=== PATIENT | female | born 1995 | race Caucasian/White ===

== ENCOUNTER → 2016-12-17 | Outpatient (CLI) | payer BC ==
[~2016-12-17] MED LIST: ACET1TAB43 PO; ACHD5005 PO; CEPH500C PO; CYCL10TA9 PO; FAMO20TA5 PO; IBUP-1773 PO; METO-270 PO; METO10TA3 PO; Metoclopramide Hcl PO; NAPR-243 PO; PREN1TAB71 PO; PRM25T PO; SCR1T1 PO; SERT50TA2 PO
--- NOTE | 2016-12-17 14:00 | Diagnostic Imaging Report ---
PROCEDURE: US abdomen complete. TECHNIQUE: Multiple real-time grayscale images were obtained over the abdomen in various projections. INDICATION: Generalized abdominal pain with vomiting and diarrhea. COMPARISON: None. DISCUSSION: Sonographic evaluation of the abdomen was performed. The liver appears normal in echotexture and size. No hepatic mass identified. The gallbladder appears normal without evidence of cholelithiasis, wall thickening, or pericholecystic fluid. No evidence of intra or extrahepatic biliary duct dilatation. The common bile duct is normal measuring 0.3 cm. The pancreas and aorta are obscured due to overlying bowel gas. The spleen appears normal in echotexture and size measuring 12.6 cm. The visualized IVC appears within normal limits. The bilateral kidneys appear normal in echotexture and size without evidence of hydronephrosis or renal mass. The right kidney measures 11 cm. The left kidney measures 11 cm. There is no ascites or abnormal bowel loops identified. No sonographic Queen sign was reported. IMPRESSION: 1. Poor visualization of the pancreas, otherwise unremarkable abdominal ultrasound. Dictated by: Dictated on workstation # [id number]
== END ==
LOC: RAD 11:57
PROVIDERS: ATTEND Nurse Practitioner Family
DX: R10.11 Right upper quadrant pain (principal); K92.1 Melena; R10.84 Generalized abdominal pain; R68.83 Chills (without fever); K81.9 Cholecystitis, unspecified
CPT/HCPCS: 76700

== ENCOUNTER 2016-12-30 07:22 | Outpatient (RCR) | payer BC ==
[~2016-12-30 07:22] MED LIST changes: -METO-270 PO; -SERT50TA2 PO
[2017-01-09] MEDS ORDERED: SERT50TA2 PO (11:12)
[2017-01-09] MEDS ORDERED: METO-270 PO (11:12)
== END 2017-03-04 | disposition home or self-care (01) ==
LOC: CARD 07:22
PROVIDERS: ATTEND Internal Medicine Cardiovascular Disease
DX: R00.2 Palpitations (principal); I49.9 Cardiac arrhythmia, unspecified; R55 Syncope and collapse
CPT/HCPCS: 93270

== ENCOUNTER 2017-01-09 05:38 | Outpatient (CLI) | payer BC ==
[~2017-01-09] VITALS: Ht 175.3 cm; Wt 65.8 kg
[2017-01-09] MEDS ORDERED: SERT50TA2 PO (11:12)
[2017-01-09] MEDS ORDERED: METO-270 PO (11:12)
== END 2017-01-09 11:14 ==
LOC: PREOP 05:38
PROVIDERS: ATTEND Surgery
DX: Z01.818 Encounter for other preprocedural examination (principal); R19.5 Other fecal abnormalities

== ENCOUNTER 2017-01-14 09:36 | Day surgery (SDC) | payer BC ==
[~2017-01-14] VITALS: Ht 175.3 cm; Wt 65.8 kg
[~2017-01-14 09:36] MED LIST changes: +METO-270 PO; +SERT50TA2 PO
[2017-01-14] MEDS ORDERED: PROPOFOL INJECTION 50 ML IV ONE (09:38)
[2017-01-14] MEDS ORDERED: MIDAZOLAM 2 MG/2 ML (VERSED) VIAL ONE ×2 (09:39→10:20)
[2017-01-14] MEDS ORDERED: NS IV 1000 ML 1,000 ML IV STA (09:42)
[2017-01-14] MEDS ORDERED: NS IV 1000 ML 1,000 ML ONE (09:49)
--- NOTE | 2017-01-14 09:53 | Progress Note-Pre Operative ---
Pre-Operative Progress Note H&P Reviewed The H&P was reviewed, patient examined and no changes noted. Date H&P Reviewed: January 14, 2017 Time H&P Reviewed: 09:52 Pre-Operative Diagnosis: black tarry stools, gerd, possible ulcer SHEN ABARCA DO January 14, 2017 9:53 am
[2017-01-14 10:17] VITALS: BP 115/85
--- NOTE | 2017-01-14 10:59 | Progress Note-Post Operative ---
Post-Operative Progess Note Surgeon (s)/Supervisor Laboratory (s) Surgeon SHEN ABARCA DO Supervisor Laboratory: na Pre-Operative Diagnosis black tarry stools, gerd, possible ulcer Post-Operative Diagnosis normal egd, slight erythematous changes in rectum Procedure & Operative Findings Date of Procedure 01/14/17 Procedure Preformed/Findings egd c biopsy and colonoscopy with cold biopsy rectum Anesthesia Type per [employer] umpire Estimated Blood Loss Estimated blood loss (mL): none Specimens/Packing Specimens Removed antrum, rectum Packing: SHEN Da Silva DO January 14, 2017 10:59
[2017-01-14] MEDS ORDERED: HURRICAINE EXT TUBE (BENZOCAINE) XX ONE (11:00)
--- NOTE | 2017-01-14 11:03 | Discharge Inst-Simple/Standard ---
Discharge Inst-Standard Patient Instructions/Follow Up Plan of Care/Instructions/FU: Follow up in clinic in 2 weeks Activity as Tolerated: Yes Discharge Diet: No Restrictions SADIE SALGADO APRN January 14, 2017 11:03
[2017-01-14 11:20] VITALS: BP 100/68
[2017-01-14 11:50] VITALS: BP 98/63
[2017-01-14 12:05] VITALS: BP 98/63
--- NOTE | 2017-01-15 05:27 | OPERATIVE REPORT ---
DATE OF SERVICE: 01/14/2017 POSTOPERATIVE DIAGNOSIS: , gastroesophageal reflux disease, possible ulcer. POSTOPERATIVE DIAGNOSIS: Normal esophagogastroduodenoscopy, slight erythematous changes in the rectum. PROCEDURE: EGD with biopsy and colonoscopy with cold biopsy of the rectum. SURGEON: Shen Snyder DO ANESTHESIA: Per PULMONOLOGIST INTENSIVIST. ESTIMATED BLOOD LOSS: None. COMPLICATIONS: None. SPECIMENS: Biopsy of the antrum and rectum. INDICATIONS: The patient is a 21-year-old female who has been having black tarry stools. She understands risks and benefits of procedure and wished to proceed with procedure. Consent was signed in the chart. PROCEDURE: The patient was taken to the endoscopy suite, placed in left lateral recumbent position. Timeout was performed. Scope was inserted in mouth, down into esophagus, stomach and into the duodenum without difficulty. There are no polyps, masses or ulcerations within the duodenum. The scope was slowly retracted back into the stomach where it was further insufflated. There were no significant mucosal changes. There are no polyps, masses or ulcerations. Scope was retroflexed noting no other pathology. Scope was returned to its normal position and biopsy of the antrum was obtained. The scope was then slowly retracted back into the distal esophagus. There are no polyps, masses or ulcerations in the esophagus. Scope was then slowly retracted back until removed, noting no other pathology. Digital rectal exam was performed and was no palpable polyps, masses or ulcerations. Scope was inserted in the rectum and noticed some isolated areas of erythematous changes within the rectum, scope was inserted all the way to the cecum without difficulty. Prep was adequate. The ileocecal valve was intubated. The terminal ileum had normal appearance. The scope was retracted back into the colon and further insufflated. There were no polyps, masses or ulcerations in the cecum, ascending, transverse, descending and sigmoid colon. The scope was also retroflexed in the rectum, noting no other pathology. Scope was returned to its normal position and cold biopsy of the erythematous changes present within the rectum was obtained. The colon was then desufflated, the colonoscope was then slowly retracted until completely removed. The patient tolerated procedure well without any complications. She was taken to the recovery room in stable condition. RECOMMENDATIONS: The patient will follow up in the office in approximately 2-3 weeks to discuss pathology results. If she has any changes prior to that, she should be reevaluated at that time. If she has any return of symptoms, she should be reevaluated at that time. Otherwise, begin normal routine screening guidelines. Job ID: [id number] DocumentID: [id number] Dictated Date: 01/14/2017 11:00:39 Buffet Manager Date: 01/15/2017 05:26:41 Dictated By: SHEN SNYDER DO
== END 2017-01-14 12:05 | disposition home or self-care (01) ==
LOC: ENDO 09:36
PROVIDERS: ATTEND Surgery
DX: R19.5 Other fecal abnormalities (principal); K21.9 Gastro-esophageal reflux disease without esophagitis
CPT/HCPCS: 84703

== ENCOUNTER 2018-03-11 12:21 | Emergency (ER) | payer BC ==
[~2018-03-11] VITALS: Ht 175.3 cm; Wt 65.8 kg
[~2018-03-11 12:21] MED LIST changes: -METO-270 PO; +METO-387 PO
[2018-03-11 12:59] LABS: BASOPHILS % (AUTO) 1 % (0-10); EOSINOPHILS # (AUTO) 0.1 10^3/uL (0.0-0.3); EOSINOPHILS % (AUTO) 1 % (0-10); HEMATOCRIT 42 % (35-52); HEMOGLOBIN 14.6 G/DL (11.5-16.0); LYMPHOCYTES # (AUTO) 1.5 X 10^3 (1.0-4.0); LYMPHOCYTES % (AUTO) 23 % (12-44); MEAN CORPUSCULAR HEMOGLOBIN 31 PG (25-34); MEAN CORPUSCULAR HGB CONC 35 G/DL (32-36); MEAN CORPUSCULAR VOLUME 88 FL (80-99); MEAN PLATELET VOLUME 9.3 FL (7.4-10.4); MONOCYTES # (AUTO) 0.6 X 10^3 (0.0-1.0); MONOCYTES % (AUTO) 9 % (0-12); NEUTROPHILS # (AUTO) 4.4 X 10^3 (1.8-7.8); NEUTROPHILS % (AUTO) 67 % (42-75); PLATELET COUNT 279 10^3/uL (130-400); RED BLOOD COUNT 4.77 10^6/uL (4.35-5.85); WHITE BLOOD COUNT 6.5 10^3/uL (4.3-11.0)
--- NOTE | 2018-03-11 13:21 | Diagnostic Imaging Report ---
INDICATION: Chest pain for three days. TIME OF EXAM: 1:05 p.m. COMPARISON: Correlation is made with prior study from 10/07/2011. FINDINGS: The heart size is normal. The pulmonary vascularity is unremarkable. The lungs are clear. No infiltrate, effusion or pneumothorax is detected. IMPRESSION: No acute cardiopulmonary process is detected. Dictated by: Dictated on workstation # [id number]
[2018-03-11 13:23] LABS: ALANINE AMINOTRANSFERASE 20 U/L (0-55); ALBUMIN 4.3 GM/DL (3.2-4.5); ALKALINE PHOSPHATASE 69 U/L (40-136); BILIRUBIN,TOTAL 0.6 MG/DL (0.1-1.0); BUN/CREATININE RATIO 13; CALCIUM 9.9 MG/DL (8.5-10.1); CARBON DIOXIDE 23 MMOL/L (21-32); CHLORIDE 106 MMOL/L (98-107); CREATININE SERUM 0.67 MG/DL (0.60-1.30); GFR ESTIMATED > 60; GLUCOSE 81 MG/DL (70-105); MAGNESIUM 2.1 MG/DL (1.8-2.4); SODIUM 138 MMOL/L (135-145); TOTAL PROTEIN 7.5 GM/DL (6.4-8.2)
[2018-03-11 13:26] LABS: FIBRIN DEGRADATION PRODUCTS 0.29 UG/ML (0.00-0.49)
[2018-03-11 13:29] LABS: MYOGLOBIN SERUM 13.2 NG/ML (10.0-92.0)
--- NOTE | 2018-03-11 13:32 | ED Chest Pain ---
General Chief Complaint: Chest Wall/Rib Pain Stated Complaint: CP Nursing Triage Note: AMB TO ROOM REPORTS SNCE FRIDAY HAS HAD CHEST PAIN SINCE FRI ON AND OFF. REPORTS MORES HEAVYNESS THAN PAIN. PAIN WORSE WITH MOVEMENT. PMH OF Nursing Sepsis Screen: No Definite Risk Source: patient Exam Limitations: no limitations History of Present Illness Date Seen by Provider: Mar 11, 2018 Time Seen by Provider: 13:30 Initial Comments to ER with reports of left-sided chest pain intermittently since Friday,this pain radiates through to her back starting today. She describes it as a heaviness. She has some shortness of breath but no nausea. She is not on control. She is a nonsmoker. She has an extensive history of cardiac related complaints and extensive workup in the outpatient setting by Dr. Newell from cardiology. Timing/Duration: intermittent Severity/Quality: moderate Location: central Radiation: no radiation Activities at Onset: none ASA po DOOR TO DOOR SALESMAN: No NTG SL DOOR TO DOOR SALESMAN: No Allergies and Home Medications Allergies Coded Allergies: No Known Drug Allergies (Unverified , 10/07/11) Home Medications Metoprolol Succinate 25 Mg Tab.er.24h, 12.5 MG PO DAILY, (Reported) take 1/2 of 25mg tab Sertraline HCl 50 Mg Tablet, 75 MG PO DAILY, (Reported) take 1 1/2 of 50mg tab Patient Home Medication List Home Medication List Reviewed: Yes Review of Systems Constitutional: see HPI; No chills, No fever EENTM: No Symptoms Reported Respiratory: See HPI, Shortness of Air Cardiovascular: See HPI, Chest Pain Gastrointestinal: No Symptoms Reported Genitourinary: No Symptoms Reported Musculoskeletal: no symptoms reported Skin: no symptoms reported Psychiatric/Neurological: No Symptoms Reported Endocrine: No Symptoms Reported Hematologic/Lymphatic: No Symptoms Reported Past Ulcrqhf-Nzcguw-Ykopjh Hx Patient Social History Alcohol Use: Occasionally Uses Recreational Drug Use: No Recent Foreign Travel: No Contact w/Someone Who Travel: No Recent Infectious Disease Expo: No Recent Hopitalizations: No Immunizations Up To Date Tetanus Booster (TDap): Unknown PED Vaccines UTD: No Date of Influenza Vaccine: Jun 16, 2016 Seasonal Allergies Seasonal Allergies: Yes Past Medical History Surgeries: Yes (WISDOM TEETH) Respiratory: No Currently Using CPAP: No Currently Using BIPAP: No Cardiac: Yes Irregular Heartbeat, Palpitations, Syncope Neurological: No Reproductive Disorders: No Female Reproductive Disorders: Denies Sexually Transmitted Disease: No HIV/AIDS: No Gastrointestinal: Yes (black tarry stools) Gastroesophageal Reflux Musculoskeletal: No Endocrine: No Loss of Vision: Denies Hearing Impairment: Denies Cancer: No Psychosocial: No Integumentary: No Blood Disorders: No Family Medical History Abdominal aortic aneurysm Arthritis 19 MOTHER (MOTHER GRANDMOTHER MATERNAL) Completed stroke 19 FATHER (GRANDFATHER) Diabetes mellitus 19 MOTHER (MOTHER) FH: breast cancer in first degree relative Headache disorder Hypercholesterolemia 19 FATHER (FATHER) 19 MOTHER (MOTHER) Hypertension 19 FATHER (FATHER) 19 MOTHER (MOTHER) Infertility Physical Exam Vital Signs Vital Signs - First Documented 03/11/18 12:25 Temp 98.9 Pulse 61 Resp 18 B/P (MAP) 103/73 (83) Capillary Refill : Less Than 3 Seconds Height, Weight, BMI Height: 5'9.00" Weight: 145lbs.0.0oz.[id number]; 21.4 BMI Method:Stated General Appearance: No Apparent Distress, WD/WN, Other (flat affect) HEENT: PERRL/EOMI, TMs Normal Neck: Full Range of Motion, Normal Inspection Respiratory: No Accessory Muscle Use, No Respiratory Distress Cardiovascular: Regular Rate, Rhythm, Normal Peripheral Pulses Gastrointestinal: Normal Bowel Sounds, Non Tender, Soft Extremity: Normal Capillary Refill, Normal Inspection Neurologic/Psychiatric: Alert, Oriented x3 Skin: Normal Color, Warm/Dry Progress/Results/Core Measures Results/Orders Lab Results Laboratory Tests Test 03/11/18 12:53 Range/Units White Blood Count 6.5 4.3-11.0 10^3/uL Red Blood Count 4.77 4.35-5.85 10^6/uL Hemoglobin 14.6 11.5-16.0 G/DL Hematocrit 42 35-52 % Mean Corpuscular Volume 88 80-99 FL Mean Corpuscular Hemoglobin 31 25-34 PG Mean Corpuscular Hemoglobin Concent 35 32-36 G/DL Red Cell Distribution Width 12.0 10.0-14.5 % Platelet Count 279 130-400 10^3/uL Mean Platelet Volume 9.3 7.4-10.4 FL Neutrophils (%) (Auto) 67 42-75 % Lymphocytes (%) (Auto) 23 12-44 % Monocytes (%) (Auto) 9 0-12 % Eosinophils (%) (Auto) 1 0-10 % Basophils (%) (Auto) 1 0-10 % Neutrophils # (Auto) 4.4 1.8-7.8 X 10^3 Lymphocytes # (Auto) 1.5 1.0-4.0 X 10^3 Monocytes # (Auto) 0.6 0.0-1.0 X 10^3 Eosinophils # (Auto) 0.1 0.0-0.3 10^3/uL Basophils # (Auto) 0.0 0.0-0.1 10^3/uL Prothrombin Time 13.0 12.2-14.7 SEC INR Comment 1.0 0.8-1.4 Activated Partial Thromboplast Time 26 24-35 SEC D-Dimer 0.29 0.00-0.49 UG/ML Sodium Level 138 135-145 MMOL/L Potassium Level 4.0 3.6-5.0 MMOL/L Chloride Level 106 98-107 MMOL/L Carbon Dioxide Level 23 21-32 MMOL/L Anion Gap 9 5-14 MMOL/L Blood Urea Nitrogen 9 7-18 MG/DL Creatinine 0.67 0.60-1.30 MG/DL Estimat Glomerular Filtration Rate > 60 BUN/Creatinine Ratio 13 Glucose Level 81 70-105 MG/DL Calcium Level 9.9 8.5-10.1 MG/DL Magnesium Level 2.1 1.8-2.4 MG/DL Total Bilirubin 0.6 0.1-1.0 MG/DL Aspartate Amino Transf (AST/SGOT) 27 5-34 U/L Alanine Aminotransferase (ALT/SGPT) 20 0-55 U/L Alkaline Phosphatase 69 40-136 U/L Myoglobin 13.2 10.0-92.0 NG/ML Troponin I < 0.30 <0.30 NG/ML Total Protein 7.5 6.4-8.2 GM/DL Albumin 4.3 3.2-4.5 GM/DL My Orders Orders - BRANDON ALEMAN STAFF ANESTHESIOLOGIST Cbc With Automated Diff (03/11/18 12:35) Magnesium (03/11/18 12:35) Chest 1 View, Ap/Pa Only (03/11/18 12:35) Ekg Tracing (03/11/18 12:35) Cardiac Profile 1 (03/11/18 12:35) Comprehensive Metabolic Panel (03/11/18 12:35) Myoglobin Serum (03/11/18 12:35) Protime With Inr (03/11/18 12:35) Partial Thromboplastin Time (03/11/18 12:35) O2 (03/11/18 12:35) Monitor-Rhythm Ecg Trace Only (03/11/18 12:35) Lipid Panel (03/12/18 06:00) Saline Lock/Iv-Start (03/11/18 12:35) Fibrin Degradation Products (03/11/18 12:53) Ketorolac Injection (Toradol Injection) (03/11/18 13:45) Orphenadrine Injection (Norflex Injectio (03/11/18 13:45) Medications Given in ED Current Medications Medications Dose Ordered Sig/Kenny Route Start Time Stop Time Status Last Admin Dose Admin Ketorolac Tromethamine 15 mg ONCE ONCE IVP 03/11/18 13:45 03/11/18 13:46 DC 03/11/18 14:01 15 MG Orphenadrine Citrate 30 mg ONCE ONCE IV 03/11/18 13:45 03/11/18 13:46 DC 03/11/18 14:01 30 MG Vital Signs/I&O 03/11/18 12:25 Temp 98.9 Pulse 61 Resp 18 B/P (MAP) 103/73 (83) Blood Pressure Mean: 83 Departure Communication (Admissions) there is no sign of pericarditis on EKG, her d-dimer is negative her troponin is negative and her chest x-ray is clear. We'll discharge from ER follow-up with Dr. Newell. Impression Primary Impression: Chest heaviness Disposition: HOME, SELF-CARE Condition: Stable Departure-Patient Inst. Decision time for Depature: 13:32 Referrals: CELIA NEWELL MD, JACQUELINE S DO (PCP/Family) Primary Care Physician Patient Instructions: Chest Pain (DC) Add. Discharge Instructions: 1. Call Dr. CROOK and/or Dr. Newell as soon as you leave here today to make an appointment for follow-up later this week. Return to ER for any concerns. Copy Copies To 1: CELIA NEWELL MD; FEMI CROOK PETER J APRN Mar 11, 2018 13:32
[2018-03-11] MEDS ORDERED: KETOROLAC 30 MG/ML VIAL IVP ONE (13:45)
[2018-03-11] MEDS ORDERED: ORPHENADRINE 60 MG/2 ML (NORFLEX) AMP IV ONE (13:45)
[2018-03-11 14:37] VITALS: BP 108/68
== END 2018-03-11 14:53 | disposition home or self-care (01) ==
LOC: EDUNIT# 12:21 → ER 12:25
DX: R07.89 Other chest pain (principal); K21.9 Gastro-esophageal reflux disease without esophagitis
CPT/HCPCS: 36415; 71045; 80053; 83735; 83874; 84484; 85025; 85379; 85610; 85730; 93005; 93041; 96374; 96375

== ENCOUNTER → 2019-12-02 | Outpatient (CLI) | payer SELFPAY ==
[~2019-12-02] MED LIST changes: -METO-387 PO; +MTP25TSR PO
== END ==
LOC: LABNPT 13:00
PROVIDERS: ATTEND Family Medicine
DX: R05 Cough (principal); R50.9 Fever, unspecified
CPT/HCPCS: 87635